=== PATIENT | female | born 1960 | race Caucasian/White ===

== ENCOUNTER 2018-06-28 14:05 | Emergency (ER) | payer OTHER ==
[~2018-06-28] VITALS: Ht 172.7 cm; Wt 85.7 kg
--- OUTSIDE RECORDS SUMMARY | 2018-06-28 14:07 | XMS REPORT ---
Author [facility] Address Unknown Phone Unavailable Care Team Providers Care Residential Property Consultant Name Role Phone Niko FINN Unavailable Unavailable Problems This patient has no known problems. Allergies, Adverse Reactions, Alerts This patient has no known allergies or adverse reactions. Medications This patient has no known medications. Encounters Start Date/Time End Date/Time Encounter Type Admission Type Attending [facility] Care Facility Care Department Encounter ID 2018-05-22 14:24:50 2018-05-22 14:24:50 Outpatient [facility] [id number] 2018-05-11 00:00:00 2018-05-11 00:00:00 Outpatient [facility] [id number] 2018-05-02 08:57:49 2018-05-02 08:57:49 Outpatient [facility] [id number] 2018-03-29 09:11:06 2018-03-29 09:11:06 Outpatient [facility] [id number] 2018-02-20 07:21:56 2018-02-20 07:21:56 Outpatient [facility] [id number] 2018-02-20 00:00:00 2018-02-20 00:00:00 Outpatient [facility] [id number] 2018-02-13 00:00:00 2018-02-13 00:00:00 Outpatient [facility] [id number] 2018-02-09 00:00:00 2018-02-09 00:00:00 Outpatient [facility] [id number] 2018-01-24 11:45:39 2018-01-24 11:45:39 Outpatient [facility] [id number] 2018-01-24 10:58:07 2018-01-24 10:58:07 Outpatient [facility] [id number] 2018-01-18 13:16:07 2018-01-18 13:16:07 Outpatient [facility] [id number] 2018-01-10 11:34:32 2018-01-10 11:34:32 Outpatient [facility] [id number] 2018-01-10 10:49:16 2018-01-10 10:49:16 Outpatient [facility] [id number] 2017-12-21 13:08:36 2017-12-21 13:08:36 Outpatient [facility] [id number] 2017-12-05 11:14:21 2017-12-05 11:14:21 Outpatient [facility] [id number] 2017-08-12 00:00:00 2017-08-12 00:00:00 Outpatient [facility] [id number] 2017-06-22 09:51:44 2017-06-22 09:51:44 Outpatient [facility] [id number] 2017-06-22 08:50:53 2017-06-22 08:50:53 Outpatient [facility] [id number] 2017-06-13 15:13:02 2017-06-13 15:13:02 Outpatient [facility] [id number] 2017-06-13 14:09:57 2017-06-13 14:09:57 Outpatient [facility] [id number] 2017-04-25 09:19:00 2017-04-25 09:19:00 Outpatient [facility] [id number] 2017-04-25 08:56:20 2017-04-25 08:56:20 Outpatient [facility] [id number] 2017-03-14 12:50:54 2017-03-14 12:50:54 Outpatient [facility] [id number] 2017-03-14 11:35:48 2017-03-14 11:35:48 Outpatient [facility] [id number] 2017-01-26 08:38:04 2017-01-26 08:38:04 Outpatient [facility] [id number] 2017-01-26 07:48:36 2017-01-26 07:48:36 Outpatient [facility] [id number] 2017-01-17 08:49:21 2017-01-17 08:49:21 Outpatient [facility] [id number] 2016-12-21 10:01:03 2016-12-21 10:01:03 Outpatient [facility] [id number] Results Test Description Test Time Test Comments Text Results Atomic Results Result Comments CT BRAIN [place] [id number] Patient Name: MARCELINO MEDRANO MR #: [id number] : 1960 Age/Sex: 57/F Req #: [id number] [facility] Physician: Ordered by: LUDMILA FINN MD Report #: [id number] Location: ER Room/Bed: Procedure: [id number] CT/CT BRAIN WO Exam Date: 06/01/17 Exam Time: 2119 REPORT STATUS: Signed Examination: CT BRAIN WITHOUT CONTRAST History:Dizziness. Comparison studies:None Technique: Axial images were obtained from the skull base to the vertex. Coronal and sagittal images reconstructed from the axial data. Intravenous contrast: None Findings: Scalp: No abnormalities. Bones: No fractures, blastic or lytic lesions. Brain sulci: Appropriate for age. Ventricles: Normal in size and configuration. No hydrocephalus. Extra-axial space: No abnormalities. Parenchyma: No abnormal densities. No masses, hemorrhage, acute or chronic vascular insults. Sellar/suprasellar region: No abnormalities. Craniocervical junction: Patent foramen magnum. No Chiari one malformation. Incidental findings: None. Impression: No intracranial abnormalities. Signed by: Dr. Mary Victoria M.D. on 06/01/2017 9:38 PM Dictated By: MARY GARDINER MD 37 Transcribed By: DIOGO on 06/01/172137 COPY TO: LUDMILA FINN MD
[2018-06-28] MEDS ORDERED: DIAZEPAM 2 MG TAB PO ONE (14:45)
[2018-06-28] MEDS ORDERED: DIAZEPAM 5 MG TAB PO ONE (15:00)
[2018-06-28] MEDS ORDERED: DEXAMETHASONE SOD PHOS 10 MG/1 ML VIAL IM ONE (15:00)
[2018-06-28] MEDS ORDERED: KETOROLAC TROMETHAMINE 60 MG/2 ML VIAL IM ONE (15:00)
[2018-06-28] MEDS ORDERED: HYDROCODONE/APAP 10MG-325MG TAB PO ONE (15:00)
--- NOTE | 2018-06-28 15:29 | Diagnostic Imaging Report ---
History: Back pain, weakness. Comparison studies: None Technique: Axial images were obtained through the lumbar spine. Coronal and sagittal images reconstructed from the axial data. Dose modulation, iterative reconstruction, and/or weight based adjustment of the mA/kV was utilized to reduce the radiation dose to as low as reasonably achievable. Intravenous contrast: None Findings: Number of non-rib bearing vertebral bodies: 5 Alignment: Straightened lumbar curvature. No subluxations or scoliosis. Soft tissues: No gross abnormalities. Paraspinal muscles: Unremarkable. Sacroiliac joints: No degenerative changes. Vertebrae: No acute fractures. No infection or neoplasm subtle cortical irregularity along the left L1 and L2 transverse processes may reflect chronic fractures as sequela of remote trauma. Degenerative changes: L1-L2: No abnormalities. L2-L3: No abnormalities. L3-L4: Symmetric disc bulge results in mild canal narrowing. Patent foramina. L4-L5: Symmetric disc bulge, thickened ligamentum flavum and mild facet arthrosis with very mild canal narrowing. Patent foramina. L5-S1: Disc osteophyte complex, asymmetric to the right, thickened ligamentum flavum and mild facet arthrosis with narrowing of the bilateral subarticular recesses and minimal canal and right foraminal narrowing. Patent left foramen. Incidental findings: Scattered calcified atherosclerosis throughout the imaged abdominal aorta and iliac vessels. IMPRESSION: 1. No acute fracture. No subluxation. 2. Mild degenerative changes without significant canal or foraminal stenosis. Signed by: Dr. Jens Benavidez M.D. on 06/28/2018 3:26 PM
[2018-06-28 16:30] LABS: BILIRUBIN,URINE NEGATIVE (NEGATIVE); CLARITY,URINE CLEAR (CLEAR); COLOR,URINE STRAW (YELLOW); KETONES,URINE NEGATIVE (NEGATIVE); LEUKOCYTE ESTERASE ,URINE 1+ (NEGATIVE); NITRITE,URINE NEGATIVE (NEGATIVE); PROTEIN,URINE DIPSTICK NEGATIVE (NEGATIVE); URINE UROBILINOGEN 0.2 mg/dL (0.2 - 1)
[2018-06-28 17:10] LABS: EPITHELIAL CELLS,URINE MANY /LPF
[2018-06-28 17:11] LABS: WBC,URINE (MAN) 21-50 /HPF (0-5)
[2018-06-29] MEDS ORDERED: PREDNISONE 20 MG TAB PO SCH (09:00)
== END 2018-06-28 17:40 | disposition home or self-care (01) ==
LOC: ER 14:05
DX: M54.6 Pain in thoracic spine (principal); M54.5 Low back pain; M54.16 Radiculopathy, lumbar region; S39.012A Strain of muscle, fascia and tendon of lower back, initial encounter; I48.91 Unspecified atrial fibrillation; K21.9 Gastro-esophageal reflux disease without esophagitis
CPT/HCPCS: 72131; 81001; 87086; 99284; J1100; J1885

== ENCOUNTER → 2018-10-17 | Outpatient (CLI) | payer OTHER ==
--- NOTE | 2018-10-17 13:36 | Diagnostic Imaging Report ---
LEFT HIP - 2 Images HISTORY: Chronic posttraumatic arthropathy COMPARISON: None available. FINDINGS: Bones: Some of the osseous structures are partially obscured by stool and overlying bowel gas. No acute displaced fracture. No aggressive osseous lesion. Joints: The joint spaces well-maintained, minimal marginal osteophytosis. Soft tissues: The soft tissues appear unremarkable. IMPRESSION: 1. No acute radiographic abnormality. 2. Minimal left hip osteoarthrosis. Signed by: Dr. Mark Villanueva D.O., M.M.M. on 10/17/2018 1:33 PM
== END ==
LOC: RAD 11:39
PROVIDERS: ATTEND Internal Medicine
DX: M25.552 Pain in left hip (principal); M16.12 Unilateral primary osteoarthritis, left hip

== ENCOUNTER → 2018-11-29 | Outpatient (CLI) | payer OTHER ==
--- NOTE | 2018-11-29 13:13 | Diagnostic Imaging Report ---
EXAM: Lumbar spine radiographs-5 views; sacral radiographs-2 views INDICATION: Sciatica, osteoarthritis. COMPARISON: CT lumbar spine 06/28/2018. FINDINGS: BONES: The alignment is within normal limits. No acute displaced fractures. Bowel gas partially obscures visualization of the sacrum. Vertebral body heights are preserved. DISCS: Mild degenerative disc changes, most pronounced at L5-S1. JOINTS: Mild facet degenerative changes at L5-S1. The sacroiliac joints are unremarkable. OTHER: Status post cholecystectomy. Atherosclerotic vascular calcifications. IMPRESSION: No acute radiographic abnormality. Mild degenerative disc and facet degenerative changes at L5-S1. Signed by: Dr. Grey Mathis MD on 11/29/2018 1:09 PM
== END ==
LOC: RAD 12:21
PROVIDERS: ATTEND Internal Medicine
DX: M54.32 Sciatica, left side (principal); M16.12 Unilateral primary osteoarthritis, left hip
CPT/HCPCS: 72110; 72220

== ENCOUNTER → 2019-01-16 | Outpatient (CLI) | payer OTHER ==
--- NOTE | 2019-01-16 15:03 | Diagnostic Imaging Report ---
TECHNIQUE: Ultrasound evaluation of the abdomen. Color doppler was utilized to supplement the evaluation. HISTORY: Acute cystitis without hematuria, low back pain COMPARISON: None available. DISCUSSION: LIVER: No focal lesion is identified. The liver measures 12 cm in the right midclavicular line. BILIARY: Status post cholecystectomy. The sonographic Robertson's sign is reported as negative. The common bile duct measures 0.6 cm. PANCREAS: Incompletely visualized due to overlying bowel gas, but no abnormality identified involving the visualized portions of the pancreas. SPLEEN: No splenomegaly. PERITONEUM: No free fluid. KIDNEYS: Right: Measures 10 cm in length. No hydronephrosis, stone, or solid mass lesion identified. Left: Measures 11 cm in length. No hydronephrosis, stone, or solid mass lesion identified. VASCULATURE: Aorta: Visualized portions appear unremarkable. Interior vena cava: Visualized portions appear unremarkable. Portal Vein: Nondilated with hepatopedal flow. IMPRESSION: 1. Status post cholecystectomy. 2. Otherwise, unremarkable. Signed by: Dr. Mark Villanueva D.O., M.M.M. on 01/16/2019 3:00 PM
== END ==
LOC: US 10:52
PROVIDERS: ATTEND Internal Medicine
DX: N30.00 Acute cystitis without hematuria (principal); M54.5 Low back pain
CPT/HCPCS: 76700

== ENCOUNTER → 2019-10-01 | Outpatient (CLI) | payer OTHER ==
--- NOTE | 2019-10-01 09:28 | Diagnostic Imaging Report ---
CT BRAIN WO HISTORY: Loss of balance COMPARISON: Head CT 06/01/2017 TECHNIQUE: Noncontrast axial scans were obtained from skull base to the vertex. Coronal and sagittal reconstructions obtained from the axial data. One or more of the following dose reduction techniques were used: Automated exposure control, adjustment of the mA and/or kV according to patient size, and/or utilization of iterative reconstruction technique. DISCUSSION: Scalp/Skull: Unremarkable. Brain sulci: Appropriate for patient's age. Ventricles: Normal in size and configuration. No hydrocephalus. Extra-axial spaces: No masses or fluid collections. Mild carotid siphon calcifications are present. Parenchyma: No abnormal densities. No mass, hemorrhage, or large vascular territory acute infarct. Dural sinuses: No abnormal densities. Sellar/Suprasellar region: Intact. Skull base: Intact. Incidental findings: Trace right mastoid effusion. IMPRESSION: No acute intracranial abnormalities. Signed by: Dr. Charly Concepcion M.D. on 10/01/2019 9:25 AM
== END ==
LOC: CT 07:34
PROVIDERS: ATTEND Internal Medicine
DX: E11.9 Type 2 diabetes mellitus without complications (principal); R27.0 Ataxia, unspecified
CPT/HCPCS: 70450

== ENCOUNTER 2020-01-24 21:22 | Emergency (ER) | payer OTHER ==
[~2020-01-24] VITALS: Ht 172.7 cm; Wt 85.7 kg
--- NOTE | 2020-01-24 22:39 | Emergency Department Note ---
History of Present Illnes History of Present Illness Chief Complaint: COVID PUI History of Present Illness This is a 59 year old female with fever and myalgias . Historian: Patient Arrival Mode: Car Onset (how long ago): day(s) (4) Radiation: Reports extremity Severity: moderate Duration (how long): day(s) (4) Relieving factors: none Exacerbating factors: none Associated symptoms: Reports fever/chills, Reports headaches Treatments prior to arrival: none Past Medical/Family History Physician Review I have reviewed the patient's past medical and family history. Any updates have been documented here. Past Medical History Recent Fever: Yes Clinical Suspicion of Infectio: Yes New/Unexplained Change in Ment: No Past Medical History: A-Fib, GERD, Chronic Back Pain Other Medical History: chronic left hip pain Past Surgical History: Cholecysctectomy, T&A, Tubal Ligation, Hernia Repair Other Surgery: Bartholins cyst Social History Smoking Cessation: Never Smoker Alcohol Use: None Any Illegal Drug Use: No Review of Systems Review of Systems Constitutional: Reports fever, Reports malaise EENTM: Reports no symptoms Cardiovascular: Reports no symptoms Respiratory: Reports no symptoms Gastrointestinal: Reports no symptoms Genitourinary: Reports no symptoms Musculoskeletal: Reports no symptoms Integumentary: Reports no symptoms Neurological: Reports headache Psychological: Reports no symptoms Endocrine: Reports no symptoms Hematological/Lymphatic: Reports no symptoms Physical Exam Related Data Allergies: Coded Allergies: erythromycin base (Verified Allergy, Intermediate, 06/28/18) Vital signs reviewed: Yes Physical Exam CONSTITUTIONAL Constitutional: Present well-developed, Present well-nourished HENT HENT: Present normocephalic, Present atraumatic, Present oropharynx clear/moist, Present nose normal HENT L/R: Present left ext ear normal, Present right ext ear normal EYES Eyes: Reports PERRL, Reports conjunctivae normal NECK Neck: Present ROM normal PULMONARY Pulmonary: Present effort normal, Present breath sounds normal CARDIOVASCULAR Cardiovascular: Present regular rhythm, Present heart sounds normal, Present capillary refill normal, Present normal rate GASTROINTESTINAL Abdominal: Present soft, Present nontender, Present bowel sounds normal GENITOURINARY Genitourinary: Present exam deferred SKIN Skin: Present warm, Present dry MUSCULOSKELETAL Musculoskeletal: Present ROM normal NEUROLOGICAL Neurological: Present alert, Present oriented x 3, Present no gross motor or sensory deficits PSYCHOLOGICAL Psychological: Present mood/affect normal, Present judgement normal Assessment & Plan Medical Decision Making MDM 59 yof with fever and myalgias. (+) contact with family members with similiar symptoms. COVID-19 highly suspected but testing deferred secondary to stable vital signs and high oxygen saturation on RA. Patient to be given Rx Azithromycin and albuterol. Patient to be given resources for outpatient testing centers Assessment & Plan Final Impression: (1) Viral syndrome Depart Disposition: HOME, SELF-CARE JULIUS LEGGETT DO Jan 24, 2020 22:39
== END 2020-01-24 22:45 | disposition home or self-care (01) ==
LOC: ER 22:35
DX: B34.9 Viral infection, unspecified (principal); R05 Cough; R51 Headache; I48.91 Unspecified atrial fibrillation; K21.9 Gastro-esophageal reflux disease without esophagitis; M25.552 Pain in left hip; G89.29 Other chronic pain; F17.210 Nicotine dependence, cigarettes, uncomplicated
CPT/HCPCS: 99282

== ENCOUNTER 2020-02-01 18:29 | Emergency (ER) | payer OTHER ==
[~2020-02-01] VITALS: Ht 172.7 cm; Wt 85.7 kg
--- NOTE | 2020-02-01 18:38 | Emergency Department Note ---
History of Present Illnes History of Present Illness History of Present Illness This is a 59 year old female arrives to the ED with generalized malaise and weakness, has been tested positive for Covid 19 . Onset (how long ago): day(s) Severity: mild Onset quality: gradual Duration (how long): day(s) Timing of current episode: constant Progression: waxing and waning Chronicity: new Context: Reports recent illness Relieving factors: none Exacerbating factors: none Past Medical/Family History Physician Review I have reviewed the patient's past medical and family history. Any updates have been documented here. Past Medical History Recent Fever: Yes Past Medical History: A-Fib, GERD, Chronic Back Pain Other Medical History: chronic left hip pain Past Surgical History: Cholecysctectomy, T&A, Tubal Ligation, Hernia Repair Other Surgery: Bartholins cyst Social History Smoking Cessation: Current some day smoker Alcohol Use: Social Any Illegal Drug Use: No Review of Systems Review of Systems Constitutional: Reports as per HPI, Reports fever, Reports malaise, Reports weakness EENTM: Reports no symptoms Cardiovascular: Reports no symptoms Respiratory: Reports as per HPI Gastrointestinal: Reports no symptoms Genitourinary: Reports no symptoms Musculoskeletal: Reports no symptoms Integumentary: Reports no symptoms Neurological: Reports no symptoms Psychological: Reports no symptoms Endocrine: Reports no symptoms Hematological/Lymphatic: Reports no symptoms Physical Exam Related Data Allergies: Coded Allergies: erythromycin base (Verified Allergy, Intermediate, 06/28/18) Vital signs reviewed: Yes Physical Exam CONSTITUTIONAL Constitutional: Present well-developed, Present well-nourished HENT HENT: Present normocephalic, Present atraumatic, Present oropharynx clear/moist, Present nose normal HENT L/R: Present left ext ear normal, Present right ext ear normal EYES Eyes: Reports PERRL, Reports conjunctivae normal NECK Neck: Present ROM normal PULMONARY Pulmonary: Present effort normal, Present breath sounds normal CARDIOVASCULAR Cardiovascular: Present regular rhythm, Present heart sounds normal, Present capillary refill normal, Present normal rate GASTROINTESTINAL Abdominal: Present soft, Present nontender, Present bowel sounds normal GENITOURINARY Genitourinary: Present exam deferred SKIN Skin: Present warm, Present dry MUSCULOSKELETAL Musculoskeletal: Present ROM normal NEUROLOGICAL Neurological: Present alert, Present oriented x 3, Present no gross motor or sensory deficits PSYCHOLOGICAL Psychological: Present mood/affect normal, Present judgement normal Assessment & Plan Medical Decision Making MDM 59-year-old well-appearing [place] arrives to the ED with complaints of cough fever loss of taste and smell. Patient is clinically presenting with signs and symptoms consistent with Covid 19. Patient informed She is positive until proven otherwise. Patient's oxygen saturation remained 99% even on exertion, no evidence of tachypnea or dyspnea noted in the ED. Spoke present length about the importance of sleeping on her stomach and rotating from side to side. Z-Jose Miguel given, signs and symptoms for return discussed. In the light of the Covid pandemic, disaster medicine care was given- patient understands why she was not tested for Covid 19 in the ED, no indications for a chest x-ray at this time given normal oxygen saturation and respiratory status. Assessment & Plan Final Impression: (1) COVID-19 Depart Disposition: HOME, SELF-CARE KRISTI ABBOTT DO Feb 01, 2020 18:38
--- NOTE | 2020-02-01 22:16 | NUR ---
Dc'd at 1841 on day shift by Eduardo Soriano RN
== END 2020-02-01 18:41 | disposition home or self-care (01) ==
LOC: ER 18:37
DX: U07.1 COVID-19 (principal); R50.9 Fever, unspecified; R05 Cough; R53.81 Other malaise; R53.1 Weakness; I48.91 Unspecified atrial fibrillation; K21.9 Gastro-esophageal reflux disease without esophagitis; M54.9 Dorsalgia, unspecified; M25.552 Pain in left hip; G89.29 Other chronic pain; F17.210 Nicotine dependence, cigarettes, uncomplicated
CPT/HCPCS: 99282

== ENCOUNTER → 2020-04-21 | Outpatient (CLI) | payer OTHER | LOC: MAMMO 09:36 | PROVIDERS: ATTEND Internal Medicine | DX: Z12.31 Encounter for screening mammogram for malignant neoplasm of breast (principal) | CPT/HCPCS: 77067 ==

== ENCOUNTER → 2020-05-12 | Day surgery (SDC) | payer OTHER ==
[2020-05-08 16:42] LABS: BASOPHILS % 0.2 % (0.0-1.0); HEMATOCRIT 41.3 % (34.2-44.1); HEMOGLOBIN 13.7 g/dL (12.0-16.0); LYMPHOCYTES # (AUTO) 1.5 (1.0-3.2); LYMPHOCYTES % 17.8 % (18.0-39.1); MEAN CORPUSCULAR HGB CONC 33.2 g/dL (31-35); MEAN CORPUSCULAR VOLUME 87.5 fL (81-99); MONOCYTES # (AUTO) 0.7 (0.2-0.8); MONOCYTES % 7.5 % (4.4-11.3); NEUTROPHILS # (AUTO) 6.4 (2.1-6.9); NEUTROPHILS % 74.2 % (38.7-80.0); PLATELET COUNT 226 x10e3/uL (140-360); RED BLOOD COUNT 4.72 x10e6/uL (3.6-5.1); RED CELL DISTRIBUTION WIDTH 12.9 % (11.7-14.4)
[2020-05-08 16:55] LABS: INR 0.87; PROTHROMBIN TIME 12.3 seconds (11.9-14.5)
[2020-05-08 16:56] LABS: PARTIAL THROMBOPLASTIN TIME 27.1 seconds (23.8-35.5)
[2020-05-08 17:16] LABS: ALANINE AMINOTRANSFERASE 33 IU/L (0-55); ALBUMIN 4.3 g/dL (3.5-5.0); ALBUMIN/GLOBULIN RATIO 1.7 (0.8-2.0); ALKALINE PHOSPHATASE 83 IU/L (40-150); ANION GAP 14.2 mmol/L (8-16); BLOOD UREA NITROGEN 25 mg/dL (7-26); BUN/CREATININE RATIO 29 (6-25); CALCIUM 9.3 mg/dL (8.4-10.2); CARBON DIOXIDE 24 mmol/L (22-29); CHLORIDE 106 mmol/L (98-107); CREATININE, SERUM 0.87 mg/dL (0.57-1.11); EST GLOMERULAR FILTRATION RATE > 60 ML/MIN (60-); GLUCOSE 114 mg/dL (74-118); POTASSIUM 4.2 mmol/L (3.5-5.1); SODIUM 140 mmol/L (136-145)
[~2020-05-12] MED LIST: COLACE100 MG PO; FAMOTIDINE20 MG PO; FENTANYL CITRATE/PF 100MCG/2 ML INJ ONE; FISH OIL 1,0001 EAC2 PO; HYOSCYAMINE 0.125 MG TAB ONE; LIDOCAINE HCL 2% LOCAL INJ 5 ML SDV VIAL INJ ONE; MIDAZOLAM HCL 2 MG/2 ML VIAL ONE; PROPOFOL IV EMULSION 10 MG/ML 20 ML VIAL ONE; VITAMIN D250 MCG PO
[2020-05-12 12:01] VITALS: BP 165/94
== END | disposition home or self-care (01) ==
LOC: OR 07:25
PROVIDERS: ATTEND Internal Medicine Gastroenterology
DX: K21.9 Gastro-esophageal reflux disease without esophagitis (principal); K22.10 Ulcer of esophagus without bleeding; K29.70 Gastritis, unspecified, without bleeding; K63.5 Polyp of colon; K62.1 Rectal polyp; K64.8 Other hemorrhoids; Z88.2 Allergy status to sulfonamides; Z88.8 Allergy status to other drugs, medicaments and biological substances; R11.0 Nausea; Z68.29 Body mass index [BMI] 29.0-29.9, adult; Z90.49 Acquired absence of other specified parts of digestive tract; E11.9 Type 2 diabetes mellitus without complications; Z86.19 Personal history of other infectious and parasitic diseases; I10 Essential (primary) hypertension; E78.00 Pure hypercholesterolemia, unspecified; Z01.810 Encounter for preprocedural cardiovascular examination; Z01.812 Encounter for preprocedural laboratory examination; Z11.59 Encounter for screening for other viral diseases
CPT/HCPCS: 36415; 43239; 45384; 80053; 85025; 85610; 85730; 93005; J2001; J2250; J2704; J3010; U0002; 45378

== ENCOUNTER → 2020-05-19 | Outpatient (CLI) | payer OTHER ==
[~2020-05-19] MED LIST changes: -FENTANYL CITRATE/PF 100MCG/2 ML INJ ONE; -HYOSCYAMINE 0.125 MG TAB ONE; -LIDOCAINE HCL 2% LOCAL INJ 5 ML SDV VIAL INJ ONE; -MIDAZOLAM HCL 2 MG/2 ML VIAL ONE; -PROPOFOL IV EMULSION 10 MG/ML 20 ML VIAL ONE
--- NOTE | 2020-05-19 16:35 | Diagnostic Imaging Report ---
Cervical spine, 3 views INDICATION: ^[id number] ^[id number] ^Spondylolysis Comparison: None available. Discussion: AP, lateral and oblique views of the cervical spine are obtained demonstrate intact cervical lordosis and alignment. No significant compression or fracture deformity is noted. Oblique views are negative for high-grade osseous neural foraminal stenosis. There is questionable right mild neural foraminal stenosis at C3-4 and C4-5. Disc-osteophyte complexes are noted at C3-4, C4-5 and C5-6. Negative for abnormal prevertebral soft tissue thickening. Partially visualized lung apices and soft tissues are unremarkable. IMPRESSION: Multilevel degenerative changes, most prominent at C3-4 and C4-5. Oblique views demonstrate questionable right neural foraminal stenosis at C3-4 and C4-5. Consider MRI for further evaluation if clinically indicated. Signed by: Norman Watts MD on 05/19/2020 4:31 PM
== END ==
LOC: RAD 15:37
PROVIDERS: ATTEND Internal Medicine
DX: M43.02 Spondylolysis, cervical region (principal)
CPT/HCPCS: 72050

== ENCOUNTER → 2020-06-05 | Outpatient (CLI) | payer OTHER ==
--- NOTE | 2020-06-05 11:17 | Diagnostic Imaging Report ---
Exam: CHEST 2 VIEWS Date: 06/05/2020 11:13 AM INDICATION: ^[id number] ^[id number] ^SIMPLE CHRONIC BRONCHITIS Comparison: None FINDINGS: Lines/Tubes:None Lungs:The lungs are well inflated. No focal consolidation or pulmonary edema. Pleura:No pleural effusion. No pneumothorax. Heart/Mediastinum:The cardiomediastinal silhouette is normal in size and contour. Bones/Soft Tissues: No acute osseous abnormality. Mild multilevel degenerative changes of the spine are noted. Upper abdomen: Unremarkable. IMPRESSION: Negative for acute intrathoracic process. Signed by: Norman Watts MD on 06/05/2020 11:14 AM
== END ==
LOC: RAD 08:50
PROVIDERS: ATTEND Internal Medicine
DX: J41.0 Simple chronic bronchitis (principal)
CPT/HCPCS: 71046

== ENCOUNTER → 2021-05-18 | Outpatient (CLI) | payer OTHER | LOC: CT 09:24 | PROVIDERS: ATTEND Internal Medicine | DX: Z12.31 Encounter for screening mammogram for malignant neoplasm of breast (principal); R91.8 Other nonspecific abnormal finding of lung field; Z87.891 Personal history of nicotine dependence | CPT/HCPCS: 71250; 77067 ==

== ENCOUNTER → 2021-10-19 | Outpatient (CLI) | payer OTHER ==
[~2021-10-19] MED LIST changes: +IOPAMIDOL 370 MG/ML 200 ML INFUS..BTL INJ ONE; +SODIUM CHLORIDE 0.9% 50ML 50 ML ONE
[2021-10-19 16:24] LABS: CREATININE, SERUM 0.96 mg/dL (0.57-1.11)
== END ==
LOC: CT 15:39
PROVIDERS: ATTEND Internal Medicine
DX: R91.8 Other nonspecific abnormal finding of lung field (principal)
CPT/HCPCS: 36415; 71260; 82565; 84520; Q9967

== ENCOUNTER 2022-02-07 20:21 | Emergency (ER) | payer OTHER ==
[~2022-02-07] VITALS: Ht 172.7 cm; Wt 85.7 kg
[~2022-02-07 20:21] MED LIST changes: -IOPAMIDOL 370 MG/ML 200 ML INFUS..BTL INJ ONE; -SODIUM CHLORIDE 0.9% 50ML 50 ML ONE
== END 2022-02-07 20:35 | disposition home or self-care (01) ==
LOC: ER 20:25
DX: M79.2 Neuralgia and neuritis, unspecified (principal); R10.31 Right lower quadrant pain; M25.552 Pain in left hip; K21.9 Gastro-esophageal reflux disease without esophagitis; G89.29 Other chronic pain
CPT/HCPCS: 99282

== ENCOUNTER → 2022-09-27 | Outpatient (CLI) | payer OTHER | LOC: RAD 13:42 | PROVIDERS: ATTEND Internal Medicine | DX: M16.12 Unilateral primary osteoarthritis, left hip (principal) ==

== ENCOUNTER → 2023-01-11 | Outpatient (CLI) | payer OTHER | LOC: MRI 07:22 | PROVIDERS: ATTEND Internal Medicine | DX: S83.422A Sprain of lateral collateral ligament of left knee, initial encounter (principal) ==

== ENCOUNTER → 2024-04-03 | Outpatient (REF) | payer OTHER | LOC: RAD 11:37 | PROVIDERS: ATTEND Internal Medicine | DX: M43.02 Spondylolysis, cervical region (principal) | CPT/HCPCS: 72050 ==

== ENCOUNTER 2024-10-07 19:20 | Emergency (ER) | payer MEDICARE, OTHER ==
[~2024-10-07] VITALS: Ht 172.7 cm; Wt 83.9 kg
[2024-10-07 19:25] VITALS: PULSE 87; RESP 20; TEMP 97.5
[2024-10-07] MEDS: IBUPROFEN 600 MG TAB PO STA (19:40)
[2024-10-07 23:39] VITALS: BP 160/88; O2SAT 95
== END 2024-10-07 23:38 | disposition home or self-care (01) ==
LOC: ER 19:24
DX: M25.562 Pain in left knee (principal); W07.XXXA Fall from chair, initial encounter; Y92.89 Other specified places as the place of occurrence of the external cause; I10 Essential (primary) hypertension; E78.5 Hyperlipidemia, unspecified; K21.9 Gastro-esophageal reflux disease without esophagitis; M25.552 Pain in left hip; G89.29 Other chronic pain
CPT/HCPCS: 99283

== ENCOUNTER → 2025-05-13 | Outpatient (REF) | payer MEDICARE | LOC: MRI 11:31 | PROVIDERS: ATTEND Internal Medicine | DX: M43.02 Spondylolysis, cervical region (principal) | CPT/HCPCS: 72050 ==